=== PATIENT | male | born 1995 | race Caucasian/White ===

== ENCOUNTER 2017-01-10 10:24 | Emergency (ER) | payer OTHER ==
[~2017-01-10] VITALS: Ht 172.7 cm; Wt 68.0 kg
[~2017-01-10 10:24] MED LIST: ANAPROX DS550 MG PO; CLINDAMYCIN HC300 MG PO; HYDROCODONE BIT1 T11 PO
[2017-01-10] MEDS ORDERED: Peridex 473 ML473 ML PO (10:42)
[2017-01-10] MEDS ORDERED: NAPROSYN500 MG PO (10:42)
[2017-01-10] MEDS ORDERED: PENICILLIN VK500 MG PO (10:42)
== END 2017-01-10 10:57 | disposition home or self-care (01) ==
LOC: ED 10:24
DX: K02.9 Dental caries, unspecified (principal); R03.0 Elevated blood-pressure reading, without diagnosis of hypertension

== ENCOUNTER 2020-05-10 02:48 | Emergency (ER) | payer OTHER ==
[~2020-05-10] VITALS: Ht 175.2 cm; Wt 74.8 kg
[~2020-05-10 02:48] MED LIST changes: +NAPROSYN500 MG PO; +PENICILLIN VK500 MG PO; +Peridex 473 ML473 ML PO
[2020-05-10] MEDS ORDERED: AMOXICILLIN500 M2 PO (03:12)
[2020-05-10] MEDS ORDERED: IBU600 M1 PO ×2 (03:12→03:16)
== END 2020-05-10 03:36 | disposition home or self-care (01) ==
LOC: ED 02:48
DX: K08.89 Other specified disorders of teeth and supporting structures (principal)

== ENCOUNTER 2024-07-28 16:53 | Emergency (ER) | payer BC ==
[~2024-07-28] VITALS: Ht 175.2 cm; Wt 83.9 kg
[~2024-07-28 16:53] MED LIST changes: +AMOXICILLIN500 M2 PO; +IBU600 M1 PO
[2024-07-28] MEDS ORDERED: VIBRAMYCIN100 MG PO (17:12)
[2024-07-28] MEDS ORDERED: METRONIDAZOLE500 M1 PO (17:12)
[2024-07-28] MEDS ORDERED: Water, Sterile 10 ML VIAL ONE (17:50)
[2024-07-28 17:54] LABS: BILIRUBIN Negative (Negative); BLOOD Negative (Negative); CLARITY Clear (Clear); COLOR Yellow (Yellow); GLUCOSE Negative (Negative); KETONE Negative (Negative); LEUKO ESTERASE Negative (Negative); NITRITE Negative (Negative); UROBILINOGEN 0.2 E.U./dl (0.0-1.0)
[2024-07-28 18:04] LABS: RBC 0-2 rbc/hpf (0-2); WBC 0-2 wbc/hpf (0-5)
== END 2024-07-28 17:37 | disposition home or self-care (01) ==
LOC: ED 16:53
PROVIDERS: Physician Assistant Medical
DX: Z20.2 Contact with and (suspected) exposure to infections with a predominantly sexual mode of transmission (principal); Z79.2 Long term (current) use of antibiotics

== ENCOUNTER → 2025-02-12 | Outpatient (CLI) | payer BC ==
[~2025-02-12] MED LIST changes: +METRONIDAZOLE500 M1 PO; +VIBRAMYCIN100 MG PO
== END | disposition home or self-care (01) ==
LOC: LAB 10:37
PROVIDERS: ATTEND Nurse Practitioner Family
DX: R19.7 Diarrhea, unspecified (principal)